=== PATIENT | male | born 1995 ===

== ENCOUNTER 2021-10-22 22:37 | Emergency (ER) | payer SELFPAY ==
[2021-10-22] MEDS ORDERED: Ketorolac 30 MG/ML SDV IM STA (23:51)
[2021-10-22] MEDS ORDERED: Lidocaine 5% Oint 35.44 GM Tube TOP STA (23:51)
[2021-10-23 00:30] VITALS: BP 109/77; PULSE 78
== END 2021-10-23 00:28 | disposition home or self-care (01) ==
LOC: MW.ED 22:37
DX: K64.4 Residual hemorrhoidal skin tags (principal)
CPT/HCPCS: 96372; 99283; A9270; J1885; 99282

== ENCOUNTER 2022-02-11 09:41 | Emergency (ER) | payer SELFPAY ==
[2022-02-11 11:33] LABS: CORONAVIRUS COVID-19 NAA NEGATIVE (NEGATIVE); INFLUENZA A NAA NEGATIVE (NEGATIVE); INFLUENZA B NAA NEGATIVE (NEGATIVE)
[2022-02-11] MEDS ORDERED: Albuterol/Ipratropium 3.0-0.5 MG/3 ML Neb Soln NEB ONE (11:43)
[2022-02-11 13:07] LABS: POTASSIUM,K 3.8 mmol/L (3.5-5.1)
[2022-02-11 13:43] VITALS: BP 113/75; PULSE 86
== END 2022-02-11 13:42 | disposition home or self-care (01) ==
LOC: MW.ED 09:41
DX: J06.9 Acute upper respiratory infection, unspecified (principal); F17.210 Nicotine dependence, cigarettes, uncomplicated; Z20.822 Contact with and (suspected) exposure to COVID-19
CPT/HCPCS: 0240U; 36415; 71046; 80053; 83735; 85025; 87651; 99284; J7620-GY